=== PATIENT | male | born 1995 | race Caucasian/White ===

== ENCOUNTER 2021-12-03 08:35 | Outpatient (CLI) | payer OTHER ==
[~2021-12-03 08:35] MED LIST: CONCERTA36 MG/BOTT PO
== END 2021-12-03 09:10 | disposition home or self-care (01) ==
LOC: SONOGRAMA 08:35
PROVIDERS: ATTEND Internal Medicine Gastroenterology
DX: E04.8 Other specified nontoxic goiter (principal); R10.13 Epigastric pain; R16.1 Splenomegaly, not elsewhere classified; R16.0 Hepatomegaly, not elsewhere classified